=== PATIENT | female | born 1930 | race Caucasian/White ===

== ENCOUNTER 2018-12-01 18:32 | Inpatient (IN) | payer MEDICARE ==
[2018-12-01] MEDS ORDERED: Piperacillin/Tazobactam 4.5 GM VIAL ONE (19:04)
[2018-12-01 19:16] LABS: Bilirubin Negative (Negative); Blood, Urine Small (Negative); Clarity CLOUDY (Clear); Glucose, Urine (Dipstick) Negative (Negative); Leukocyte Small (Negative); Nitrite Positive (Negative); Protein, Urine (Dipstick) 300 mg/dL (Neg-Trace); Specific Gravity, Urine 1.015 (1.002-1.036); Urobilinogen 0.2 mg/dL (0.2-1.0)
[2018-12-01 19:19] LABS: Bacteria/HPF None Seen HPF (None Seen); Hyaline Casts/LPF 0-3 HYALINE CAST LPF (0-3 Hyaline); Pathc Cast-AUWi Flag 0.14 (0-2.49); RBC/HPF None Seen HPF (0-3); Squamous Epithelial None Seen HPF (0-3)
[2018-12-01 19:45] LABS: #Lymphocytes 0.6 thou/uL (1.20-3.40); #Monocytes 0.4 thou/uL (0.11-0.59); #Neutrophils 2.5 thou/uL (1.40-6.50); %Basophils 0.8 % (0.0-1.0); %Eosinophils 0.6 % (0.0-10.0); %Lymphocytes 17.8 % (21.0-51.0); %Monocytes 10.9 % (0.0-10.0); Hemoglobin 7.3 g/dL (12.0-16.0); Mean Corpuscular HGB CONC 33.6 g/dL (32.0-36.0); Mean Corpuscular Hemoglobin 32.8 pg (27.0-31.0); Mean Corpuscular Volume 97.5 fL (78.0-98.0); Mean Platelet Volume 7.7 fL (7.4-10.4); Platelet Count 152 thou/uL (130-400); RBC Distribution Width 12.9 % (11.5-14.5); Red Blood Cell (RBC) Count 2.22 mill/uL (4.20-5.40); White Blood Cell (WBC) Count 3.6 thou/uL (4.8-10.8)
[2018-12-01 20:05] LABS: ALT (SGPT) 13 U/L (8-55); AST (SGOT) 23 U/L (5-34); Albumin 2.9 g/dL (3.4-4.8); Alkaline Phosphatase 64 U/L (40-150); Anion Gap 13 mmol/L (10-20); BUN (Urea Nitrogen) 32 mg/dL (9.8-20.1); Bilirubin, Total 0.2 mg/dL (0.2-1.2); CK (CPK) 247 U/L (29-168); Calc. Creatinine Clearance 0 mL/min (70-130); Calcium 7.9 mg/dL (7.8-10.44); Carbon Dioxide 15 mmol/L (23-31); Chloride 114 mmol/L (98-107); Estimated GFR-MDRD 38; Globulin 2.3 g/dL (2.4-3.5); Glucose 132 mg/dL (83-110); Protein, Total 5.2 g/dL (6.0-8.3); Sodium 138 mmol/L (136-145)
[2018-12-01] MEDS ORDERED: Oseltamivir 75 MG CAP PO SCH (20:45)
--- NOTE | 2018-12-01 21:12 | CT ---
BRAIN CT WITHOUT IV CONTRAST: 12/01/18 HISTORY: 88-year-old female with history of altered mental status. Atrophy and chronic white matter ischemic changes with some generalized ventriculomegaly. Sinus mucos al changes particularly the left maxillary and sphenoid sinuses with probable small amount of fluid in the left maxillary sinus. The mastoids appear clear. No focal mass or midline shift. 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 IMPRESSION: Atrophy and chronic white matter ischemic changes. No mass or bleed. Sinus mucosal disease. POS: [facility]
--- NOTE | 2018-12-01 21:23 | RAD ---
CHEST ONE VIEW: 12/01/18 HISTORY: 88-year-old female with history of cough and altered mental status. There is considerable rotation to the right. Left PICC line in place. Surgical clips overlie the left chest and chest wall region. Minimal blunting of the right costophrenic angle with some increased ma rkings in the right perihilar and infrahilar region, nonspecific. Conceivably this could represent so me mild atypical pneumonitis but no evidence for significant confluent lobar pneumonia. IMPRESSION: Minimal increase linear and interstitial markings in the right chest and perihilar region possibly at ypical pneumonia or pneumonitis. Marked rotation to the right. No significant cardiomegaly. There is overall slight prominence of the right hilar region. This may just be related to rotation or could we ll be related to some associated adjacent pneumonia or pneumonitis. Short term followup is recommende d. POS: [facility]
[2018-12-01 22:28] VITALS: BMI 23.4
[2018-12-01] MEDS ORDERED: Sodium Chloride 0.9% 1,000 ML IV SCH (22:30)
[2018-12-01] MEDS ORDERED: Ondansetron PF 4 MG/2 ML Vial IVP PRN (22:43)
[2018-12-01] MEDS ORDERED: Guaifenesin DM 100-10/5 ML UDCUP PO PRN (22:43)
[2018-12-01] MEDS ORDERED: Loperamide HCl 2 MG CAP PO PRN (22:43)
[2018-12-01] MEDS ORDERED: Calcium Carbonate 500 MG ChewTAB PO PRN (22:43)
[2018-12-01] MEDS ORDERED: Senokot S 8.6-50 MG TAB PO PRN (22:43)
[2018-12-01] MEDS ORDERED: Bisacodyl 10 MG SUPP PR PRN (22:43)
[2018-12-01] MEDS ORDERED: Ondansetron ODT 4 MG TAB PO PRN (22:43)
[2018-12-01] MEDS: Sodium Chloride 0.45% 1,000 ML IV SCH (22:50)
--- NOTE | 2018-12-01 23:10 | HP ---
PRIMARY CARE PHYSICIAN: Derik Weeks MD REASON FOR ADMISSION: Sepsis, influenza A, UTI, acute kidney failure, and encephalopathy. HISTORY OF PRESENT ILLNESS: This is an 88-year-old female who lives at senior living. She has DNR status at senior living. The patient is not able to provide any history, so most of the history obtained from the emergency room record. The patient was altered more than her baseline at senior living. She has underlying Alzheimer's dementia, but she appeared more altered at dinner time. She was hypotensive as well as extremely weak. She also had diarrhea. She was also having cough productive of whitish sputum. She was having a little bit low-grade fever at senior living and with all these symptoms, she was presented to the emergency room. When paramedics took her from senior living, at that time, her blood pressure was 70/50 and after giving her IV fluid, her blood pressure improved to 110 systolic. When she came to emergency room, the patient was having low-grade fever. She was having relatively low blood pressure. The patient was found with influenza A. her urinalysis was consistent with UTI. She was also found with acute kidney injury. The patient clinically appeared dehydrated. Her urinalysis is suggestive of UTI as well. The patient is being admitted to [facility] for close monitoring. The patient has out of hospital DNR paperwork at senior living. REVIEW OF SYSTEMS: All review of system tried to be reviewed with the patient, but unable to review at this point because of encephalopathy. PAST MEDICAL HISTORY: Tinea infection, keratosis, peripheral vascular disease, osteoarthritis, hypertension, history of left breast cancer, coronary artery disease, hiatal hernia, asthma, and dyslipidemia. PAST SURGICAL HISTORY: Left mastectomy. PAST PSYCHIATRIC HISTORY: Anxiety, depression and dementia. SOCIAL HISTORY: The patient is from senior living. No history of tobacco, alcohol, or illicit drug abuse. FAMILY HISTORY: The patient is not able to provide any family history and we do not have any information about family history. Unable to review at this point. ALLERGIES: NO KNOWN DRUG ALLERGIES. REVIEW OF SYSTEMS: All review of system tried to be reviewed with the patient, but unable to review because of altered mental status. CURRENT HOME MEDICATIONS: 1. Amlodipine 5 mg twice daily. 2. Buspirone 15 mg daily. 3. Colace 100 mg daily. 4. Aricept 10 mg daily. 5. Lexapro 10 mg daily. 6. Melatonin 3 mg p.o. nightly. 7. Namenda 10 mg twice daily. 8. Seroquel 50 mg twice daily. EMERGENCY ROOM COURSE: The patient has received IV fluids, DuoNeb, Zosyn, and Tamiflu. PHYSICAL EXAMINATION: VITAL SIGNS: On arrival, blood pressure 91/49, temperature 100.3, pulse 81, respiratory rate 20, saturation 95% on room air and weight 59 kg. GENERAL: The patient currently appears chronically ill, awake, but confused. No obvious acute distress. HEENT: Head; normocephalic, atraumatic. Eyes; pupils round, reactive to light. Extraocular muscle intact. ENT; oropharynx within normal limits. Moist mucous membranes. No oral lesion. No pharyngeal erythema. No exudate. NECK: Supple. No JVD. No thyromegaly. No carotid bruit. LUNGS: Coarse breath sounds noted, but no obvious rhonchi or rales elicited. CARDIAC: S1, S2 appears regular without any significant murmur. ABDOMEN: Soft and benign without any tenderness. EXTREMITIES: No edema. NEUROLOGIC: Nonfocal examination. She moves all four limbs, but the patient is confused and unable to provide any detailed neurological examination. SIGNIFICANT LABORATORY DATA: CT brain showing a brain atrophy, chronic white matter ischemic changes. Chest x-ray showing interstitial infiltration. CBC; WBC 3.6, hemoglobin 7.3, platelets 152. BMP; sodium 138, potassium 4.0, chloride 114, carbon dioxide 15, BUN 13, creatinine 32, creatinine 1.33, glucose 132, calcium 7.9. Lactic acid 1.6. LFTs; AST 23, ALT 13, alkaline phosphatase 64, and albumin 2.9. CK 247. Urinalysis suggestive of UTI. Stool for C diff negative. Stool for guaiac positive, Campylobacter and shiga toxin negative. Influenza A positive. ASSESSMENT AND PLAN: 1. Acute encephalopathy due to sepsis. The patient does have underlying Alzheimer's dementia, but she is more altered than baseline, likely due to underlying influenza A, urinary tract infection and dehydration. CT brain is showing brain atrophy without any acute process. 2. Acute kidney failure. The patient clinically appears dehydrated. She will be given IV fluid with half-normal saline NS at 75 mL/hour, and we will repeat BMP tomorrow. 3. Hyperchloremic acidosis with normal anion gap. We will repeat BMP tomorrow. This could be related with her diarrhea, but her stool for Clostridium difficile is negative. She has underlying viral illness that contributing to her diarrhea as well. 4. Urinary tract infection. The patient will be given Rocephin and Levaquin and we will follow up on urine culture results. 5. Pneumonia. The patient will be given Rocephin and levofloxacin and DuoNeb p.r.n. basis. 6. Sepsis with acute organ dysfunction. The patient has sepsis picture with leukopenia. Source of infection is urinary tract infection and pneumonia as well as influenza. The patient is already on Tamiflu, Rocephin, Levaquin, and we will follow up on culture results. 7. Influenza A. Continue Tamiflu 75 mg p.o. b.i.d. 8. Anemia. Continue folic acid, vitamin B12, and ferrous sulfate. 9. Hypotension. Continue IV fluid with NS at 75 mL/h and increase the fluid if needed. If the patient's blood pressure continue to remain low, then we will check random cortisol. 10. Alzheimer's dementia. The patient will continue Aricept 10 mg p.o. daily and Namenda 10 mg twice daily. 11. Anxiety and depression. We will continue buspirone 15 mg daily, Lexapro 10 mg daily, and Seroquel 50 mg p.o. b.i.d. 12. Hypertension, but currently low blood pressure and so I will hold on antihypertensive medication. 13. Deep venous thrombosis prophylaxis. Lovenox 30 mg subcutaneous daily. 14. Gastrointestinal prophylaxis. Pepcid 20 mg p.o. b.i.d. CODE STATUS: The patient is DNR. The patient does not have any surrogate decision maker. DISPOSITION PLAN: Based on clinical course, we are expecting the patient's stay in hospital more than two midnights. Plan of care discussed with the patient in detail. Job ID: [id number]
[2018-12-01] MEDS ORDERED: Vancomycin HCl 1 GM in Premix Bag 1 BAG IVPB SCH (23:59)
[2018-12-01] MEDS ORDERED: cefTRIAXone\\ROCEPHIN 1 GM in Sodium Chloride 0.9% 100 ML IVPB SCH (23:59)
[2018-12-02 04:40] LABS: ALT (SGPT) 13 U/L (8-55); AST (SGOT) 28 U/L (5-34); Albumin 2.8 g/dL (3.4-4.8); Alkaline Phosphatase 59 U/L (40-150); Anion Gap 11 mmol/L (10-20); BUN (Urea Nitrogen) 27 mg/dL (9.8-20.1); Bilirubin, Total 0.2 mg/dL (0.2-1.2); Calc. Creatinine Clearance 31 mL/min (70-130); Calcium 7.8 mg/dL (7.8-10.44); Carbon Dioxide 15 mmol/L (23-31); Chloride 117 mmol/L (98-107); Estimated GFR-MDRD 47; Globulin 2.4 g/dL (2.4-3.5); Glucose 82 mg/dL (83-110); Potassium 4.4 mmol/L (3.5-5.1); Protein, Total 5.2 g/dL (6.0-8.3); Sodium 139 mmol/L (136-145)
[2018-12-02 05:04] LABS: Hemoglobin 7.8 g/dL (12.0-16.0); Hypochromia SLIGHT = 6-15 cells (100X) (0-5/hpf); Lymphocytes 28 % (21-51); MDiff Complete? YES; Mean Corpuscular HGB CONC 32.8 g/dL (32.0-36.0); Mean Corpuscular Hemoglobin 31.6 pg (27.0-31.0); Mean Corpuscular Volume 96.3 fL (78.0-98.0); Monocytes 12 % (0-10); Neutrophil 60 % (42-75); PLT Morphology Comment Appears Decreased; Platelet Count 113 thou/uL (130-400); RBC Distribution Width 12.8 % (11.5-14.5); Red Blood Cell (RBC) Count 2.47 mill/uL (4.20-5.40); White Blood Cell (WBC) Count 3.5 thou/uL (4.8-10.8)
[2018-12-02] MEDS ORDERED: Oseltamivir 75 MG CAP PO SCH (09:00)
[2018-12-02] MEDS ORDERED: Prevnar 13-Val Conj/PF 0.5 ML SYRINGE IM ONE (09:00)
[2018-12-02] MEDS: Multivitamin W/ Minerals 1 TAB PO SCH (09:15)
[2018-12-02] MEDS: busPIRone HCl 10 MG TAB PO SCH ×2 (09:15→20:44)
[2018-12-02] MEDS: Enoxaparin Sodium 30 MG/0.3 ML SYRINGE SC SCH (09:15)
[2018-12-02] MEDS: Calcium Carbonate + Vit D 1 TAB PO SCH ×2 (09:16→20:44)
[2018-12-02] MEDS: Ferrous Sulfate 325 MG TAB PO SCH (09:16)
[2018-12-02] MEDS: Cyanocobalamin (Vitamin B-12) 1,000 MCG TAB PO SCH (09:16)
[2018-12-02] MEDS: Donepezil HCl 10 MG TAB PO SCH (09:16)
[2018-12-02] MEDS: Amlodipine 5 MG TAB PO SCH ×2 (09:16→20:45)
[2018-12-02] MEDS: Saccharomyces boulardii 250 MG CAP PO SCH (09:16)
[2018-12-02] MEDS: Escitalopram Oxalate 10 mg Tablet PO SCH (09:16)
[2018-12-02] MEDS: Folic Acid 1 MG TAB PO SCH (09:16)
[2018-12-02] MEDS: guaiFENesin ER 600 MG TAB PO SCH ×2 (09:16→20:45)
[2018-12-02] MEDS: Docusate 100 MG CAP PO SCH (09:16)
[2018-12-02] MEDS: Famotidine 20 MG TAB PO SCH (09:16)
--- NOTE | 2018-12-02 11:50 | CON ---
DATE OF CONSULTATION: 12/02/2018 SERVICE: Pulmonary Medicine. REASON FOR CONSULT: IMCU patient. HISTORY OF PRESENT ILLNESS: The patient is an 88-year-old white female with past medical history significant for cognitive impairment. She lives in a nursing facility. She was in her usual state of health when she had increasing weakness and lethargy. She had some diarrhea. She had significant cough. She had a fever. She was brought to the emergency department. Her blood pressures were marginal. She was identified as having both urinary tract infection as well as influenza A. There was reports that she had some bloody bowel movements as well. She cannot provide any additional elements of the presenting history. She currently denies having any chest pain, fevers, chills, nausea, or vomiting. She is coughing. She denies having any sputum production. She is not having any abdominal pain, dysuria, frequency, or diarrhea that she can remember. PAST MEDICAL HISTORY: 1. Dementia, advanced. 2. Breast cancer. 3. Coronary artery disease. 4. Peripheral vascular disease. 5. Hypertension. 6. Dyslipidemia. 7. Asthma. 8. Osteoarthritis. 9. Hiatal hernia. PAST SURGICAL HISTORY: Left mastectomy. SOCIAL HISTORY: Negative for alcohol, tobacco, or illicit drug use currently. She lives in a nursing facility. FAMILY HISTORY: Noncontributory. ALLERGIES: NO KNOWN DRUG ALLERGIES. MEDICATIONS: List of her inpatient medications was reviewed. Multiple updates were made at this time. REVIEW OF SYSTEMS: General; head, ears, eyes, nose, and throat; cardiovascular; respiratory; GI; ; musculoskeletal; neurologic; and skin are negative, except for as mentioned in the HPI. PHYSICAL EXAMINATION: VITAL SIGNS: Afebrile, pulse 65, blood pressure 156/76, respirations 18, and saturation 98% on room air. GENERAL: The patient is awake and alert, in no apparent distress. LUNGS: Decent air entry. Extensive rhonchi are present. There is no prolonged expiratory phase or wheezing appreciated. HEART: Normal rate, regular. ABDOMEN: Soft, nontender, and nondistended. Bowel sounds are positive. MUSCULOSKELETAL: No cyanosis or clubbing. There is no pitting in bilateral lower extremities. NEUROLOGIC: Grossly nonfocal. LABORATORY DATA: WBC 3.5, hemoglobin 7.8, and platelets 113,000. Monocytes are 12% and improving. Lymphocytes are likewise rebounding. Chloride 117. Basic metabolic profile is otherwise unremarkable. Bicarb 15. Liver function studies are unremarkable. Lactate is negative. Nitrites are positive with greater than 50 white blood cells. Leukocyte esterase is also present. Blood cultures x2 are negative. Influenza A is positive. C difficile antigen and toxin are unremarkable. Occult blood is positive. IMAGING DATA: 1. Chest x-ray demonstrates no acute subtle interstitial fullness in the right chest. There is significant rotation there. There is a left PICC line, which appears to terminate in a good position. I do not see any obvious effusion. 2. CT of the brain demonstrates no acute intracranial abnormality. ASSESSMENT: 1. Acute hypoxic respiratory failure, resolved. 2. Acute bronchitis secondary to influenza A. 3. Urinary tract infection. 4. Severe sepsis. 5. Metabolic encephalopathy, resolved. 6. Positive fecal occult blood test. 7. Anemia. DISCUSSION AND PLAN: The patient is stable for transition out of the IMCU to the medical unit. Pulmonary will continue to follow for an additional 24 hours. We will continue steroids, nebulized medications, and antibiotics. Cough suppressants will be interrupted. Pulmonary/Critical Care will continue to follow along for now. 70 minutes have been devoted to this patient in various activities. I personally reviewed all imaging studies and laboratory data noted within this document. For fifty percent of this time, I was interacting with the patient at the bedside or coordinating care with the care team. For the remainder of the time I was immediately available to the patient in the hospital unit. Job ID: [id number] MTDD
[2018-12-02] MEDS ORDERED: hydrALAZINE 20 MG/ML VIAL SLOW IVP PRN (14:04)
[2018-12-02] MEDS: hydrALAZINE 25 MG TAB PO SCH ×2 (15:05→20:44)
[2018-12-02] MEDS: Acetaminophen 325 MG TAB PO PRN (15:06)
--- NOTE | 2018-12-02 19:54 | PDOC.PN ---
- Subjective Encounter Start Date: 12/02/18 Encounter Start Time: 10:20 Says she does not feel good. No much more specific. Questions what is wrong her (does not recall). - Objective Resuscitation Status - Order Detail: 12/01/18 21:18 Resuscitation Status Routine Resuscitation Status: DNAR: NO Resuscitation Discussed with: pt has outof hospital DNR and wanted to continue Vital Signs & Weight: Vital Signs (12 hours) Temp Pulse Pulse Pulse Resp BP BP 12/02/18 15:09 98.3 F 89 18 185/67 H 12/02/18 15:05 85 12/02/18 14:33 101 H 90 213/96 H 12/02/18 11:06 98.5 F 85 18 177/102 H 12/02/18 09:16 65 12/02/18 08:02 96.7 F L 65 18 156/76 H Pulse Ox Pulse Ox Pulse Ox 12/02/18 15:09 100 12/02/18 15:05 12/02/18 14:33 97 98 12/02/18 11:06 94 L 12/02/18 09:16 12/02/18 08:02 98 Weight Admit Weight 120 lb 3.2 oz Weight 120 lb 3.2 oz I&O: 12/01/18 12/02/18 12/03/18 06:59 06:59 06:59 Intake Total 525 Balance 525 Result Diagrams: 12/02/18 04:16 12/02/18 04:16 Phys Exam - Physical Examination No distress, but appears to have chills. Awake and alert. Confused. Respiratory: no wheezing, no rales, no rhonchi Cardiovascular: RRR, no significant murmur, no rub Gastrointestinal: soft, non-tender, no distention, positive bowel sounds Musculoskeletal: no edema Skin: normal turgor Dx/Plan (1) Acute metabolic encephalopathy Code(s): G93.41 - METABOLIC ENCEPHALOPATHY Status: Acute (2) Sepsis Code(s): A41.9 - SEPSIS, UNSPECIFIED ORGANISM Status: Acute (3) UTI (urinary tract infection) Status: Acute (4) Influenza A Code(s): J10.1 - FLU DUE TO OTH IDENT INFLUENZA VIRUS W OTH RESP MANIFEST Status: Acute (5) Acute kidney failure Status: Acute (6) Anemia Code(s): D64.9 - ANEMIA, UNSPECIFIED Status: Acute (7) Hypotension Status: Acute (8) Alzheimer's dementia Code(s): G30.9 - ALZHEIMER'S DISEASE, UNSPECIFIED; F02.80 - DEMENTIA IN OTH DISEASES CLASSD ELSWHR W/O BEHAVRL DISTURB Status: Acute (9) Anxiety and depression Code(s): F41.9 - ANXIETY DISORDER, UNSPECIFIED; F32.9 - MAJOR DEPRESSIVE DISORDER, SINGLE EPISODE, UNSPECIFIED Status: Acute (10) Hypertension Code(s): I10 - ESSENTIAL (PRIMARY) HYPERTENSION Status: Acute - Plan * Pulmonology consulted. * Continue fluid resuscitation. * IV Levaquin * Tamiflu. * Monitor renal function. * Renal dose meds.
[2018-12-02] MEDS: Melatonin 3 MG TAB PO SCH (20:44)
[2018-12-02] MEDS: Oseltamivir 6 MG/ML ORAL SUSP PO SCH (20:45)
[2018-12-02] MEDS: Sodium Chloride 0.45% 1,000 ML IV SCH ×2 (22:11→23:43)
[2018-12-02] MEDS ORDERED: Diphenoxylate HCl/Atropine Tablet PO SCH (22:45)
[2018-12-03 06:57] LABS: Hemoglobin 8.5 g/dL (12.0-16.0)
[2018-12-03] MEDS: Calcium Carbonate + Vit D 1 TAB PO SCH ×2 (07:18→20:20)
[2018-12-03] MEDS: Donepezil HCl 10 MG TAB PO SCH (07:18)
[2018-12-03] MEDS: Oseltamivir 6 MG/ML ORAL SUSP PO SCH ×2 (07:18→21:01)
[2018-12-03] MEDS: guaiFENesin ER 600 MG TAB PO SCH ×2 (07:19→20:20)
[2018-12-03] MEDS: Folic Acid 1 MG TAB PO SCH (07:19)
[2018-12-03] MEDS: Escitalopram Oxalate 10 mg Tablet PO SCH (07:19)
[2018-12-03] MEDS: Docusate 100 MG CAP PO SCH (07:19)
[2018-12-03] MEDS: Saccharomyces boulardii 250 MG CAP PO SCH (07:19)
[2018-12-03] MEDS: busPIRone HCl 10 MG TAB PO SCH ×2 (07:19→20:19)
[2018-12-03] MEDS: Multivitamin W/ Minerals 1 TAB PO SCH (07:19)
[2018-12-03] MEDS: Famotidine 20 MG TAB PO SCH (07:20)
[2018-12-03] MEDS: Enoxaparin Sodium 30 MG/0.3 ML SYRINGE SC SCH (07:20)
[2018-12-03] MEDS: Cyanocobalamin (Vitamin B-12) 1,000 MCG TAB PO SCH (07:20)
[2018-12-03] MEDS: Ferrous Sulfate 325 MG TAB PO SCH (07:20)
[2018-12-03 07:22] LABS: Anion Gap 13 mmol/L (10-20); BUN (Urea Nitrogen) 17 mg/dL (9.8-20.1); Calc. Creatinine Clearance 33 mL/min (70-130); Calcium 8.4 mg/dL (7.8-10.44); Carbon Dioxide 16 mmol/L (23-31); Chloride 110 mmol/L (98-107); Estimated GFR-MDRD 52; Glucose 84 mg/dL (83-110); Magnesium 1.5 mg/dL (1.6-2.6); Phosphorus 2.7 mg/dL (2.3-4.7); Potassium 3.7 mmol/L (3.5-5.1); Sodium 135 mmol/L (136-145)
[2018-12-03] MEDS: Amlodipine 5 MG TAB PO SCH ×2 (07:24→20:20)
[2018-12-03] MEDS: hydrALAZINE 25 MG TAB PO SCH ×3 (07:24→20:20)
[2018-12-03] MEDS: Sodium Chloride 0.45% 1,000 ML IV SCH ×2 (08:11→11:36)
[2018-12-03] MEDS: Acetaminophen 325 MG TAB PO PRN (08:11)
[2018-12-03] MEDS ORDERED: Magnesium Sulfate 2 GM in Sodium Chloride 0.9% 100 ML IVPB SCH (09:45)
[2018-12-03] MEDS ORDERED: Magnesium 2 GM/50 ML 2 GM in Premix Bag 1 BAG IVPB SCH (09:45)
--- NOTE | 2018-12-03 09:46 | PRG ---
DATE OF SERVICE: SERVICE: Pulmonary Medicine. INTERVAL HISTORY: The patient is doing fine from respiratory standpoint. She is breathing comfortably. She has been weaned down to room air. She does not have any complaints. No overnight events were recorded. PHYSICAL EXAMINATION: VITAL SIGNS: Temperature 100.8, pulse 86, blood pressure 102/67, respirations 18, and saturation 94% on room air. GENERAL: The patient is awake and alert, in no apparent distress. LUNGS: Decent air entry. Rhonchi are present. No dependent crackles are noted. HEART: Normal rate, regular. ABDOMEN: Soft, nontender, and nondistended. Bowel sounds are positive. MUSCULOSKELETAL: No cyanosis or clubbing. No pitting in the bilateral lower extremities. NEUROLOGIC: Grossly nonfocal. LABORATORY DATA: Hemoglobin 8.5. Sodium 135, chloride 110, bicarb 16 and slowly improving, anion gap 13. Creatinine 1.01 and stable, magnesium 1.5. Urine culture is growing Staph species. Blood cultures x2, and C. diff antigen and toxin are unremarkable. ASSESSMENT: 1. Acute hypoxic respiratory failure, resolved. 2. Acute bronchitis secondary to influenza A. 3. Urinary tract infection. 4. Severe sepsis. 5. Metabolic encephalopathy, resolved. 6. Anemia. 7. Dementia, fairly advanced. DISCUSSION AND PLAN: We will replace the magnesium and the potassium. Otherwise, supportive measures including antibiotics, steroids, nebulized medications will be continued. Pulmonary Critical Care will continue to follow along while the patient remains inhouse. Job ID: [id number]
--- NOTE | 2018-12-03 11:03 | PDOC.PN ---
- Subjective Encounter Start Date: 12/03/18 Encounter Start Time: 08:50 Denies specific concerns. Says, "I just hate myself." Does not respond to me when I tried to clarify. - Objective Resuscitation Status - Order Detail: 12/01/18 21:18 Resuscitation Status Routine Resuscitation Status: DNAR: NO Resuscitation Discussed with: pt has outof hospital DNR and wanted to continue Vital Signs & Weight: Vital Signs (12 hours) Temp Pulse Resp BP BP Pulse Ox 12/03/18 07:54 100.8 F H 86 18 102/67 94 L 12/03/18 07:24 87 130/74 12/03/18 05:05 98.7 F 87 16 117/70 93 L 12/03/18 00:00 98 F 83 16 137/81 93 L 12/02/18 23:17 98.8 F 86 20 122/62 96 Weight Admit Weight 120 lb 3.2 oz Weight 120 lb 3.2 oz I&O: 12/02/18 12/03/18 12/04/18 06:59 06:59 06:59 Intake Total 525 500 Balance 525 500 Result Diagrams: 12/03/18 06:40 12/03/18 06:40 Phys Exam - Physical Examination Constitutional: NAD Respiratory: no wheezing, no rhonchi Minimal scattered rales. Cardiovascular: RRR, no significant murmur Gastrointestinal: soft, non-tender, no distention, positive bowel sounds Musculoskeletal: no edema Deviation from normal: baseline confused. Dx/Plan (1) Acute respiratory failure with hypoxia Code(s): J96.01 - ACUTE RESPIRATORY FAILURE WITH HYPOXIA Status: Resolved (2) Acute metabolic encephalopathy Code(s): G93.41 - METABOLIC ENCEPHALOPATHY Status: Acute Comment: Secondary to sepsis. Baseline dementia. (3) Sepsis Code(s): A41.9 - SEPSIS, UNSPECIFIED ORGANISM Status: Acute Comment: Secondary to UTI and influenza. (4) UTI (urinary tract infection) Status: Acute Comment: Growing Staph in urine. On Levaquin. (5) Influenza A Code(s): J10.1 - FLU DUE TO OTH IDENT INFLUENZA VIRUS W OTH RESP MANIFEST Status: Acute Comment: Tamiflu. (6) Acute kidney failure Status: Resolved (7) Anemia Code(s): D64.9 - ANEMIA, UNSPECIFIED Status: Acute Comment: Heme positive. May need workup when more stable, but hgb actually going up. (8) Hypotension Status: Resolved (9) Alzheimer's dementia Code(s): G30.9 - ALZHEIMER'S DISEASE, UNSPECIFIED; F02.80 - DEMENTIA IN OTH DISEASES CLASSD ELSWHR W/O BEHAVRL DISTURB Status: Chronic (10) Anxiety and depression Code(s): F41.9 - ANXIETY DISORDER, UNSPECIFIED; F32.9 - MAJOR DEPRESSIVE DISORDER, SINGLE EPISODE, UNSPECIFIED Status: Chronic (11) Hypertension Code(s): I10 - ESSENTIAL (PRIMARY) HYPERTENSION Status: Chronic (12) Hypomagnesemia Code(s): E83.42 - HYPOMAGNESEMIA Status: Acute Comment: Repletion ordered - Plan * Continue antibiotics and antivirals. * Follow up on cultures. * Continue home meds.
[2018-12-03] MEDS: Melatonin 3 MG TAB PO SCH (20:21)
[2018-12-04] MEDS: Sodium Chloride 0.45% 1,000 ML IV SCH (05:08)
[2018-12-04 06:54] LABS: Anion Gap 13 mmol/L (10-20); BUN (Urea Nitrogen) 18 mg/dL (9.8-20.1); Calc. Creatinine Clearance 29 mL/min (70-130); Calcium 8.5 mg/dL (7.8-10.44); Carbon Dioxide 17 mmol/L (23-31); Chloride 111 mmol/L (98-107); Estimated GFR-MDRD 45; Glucose 91 mg/dL (83-110); Potassium 3.7 mmol/L (3.5-5.1); Sodium 137 mmol/L (136-145)
[2018-12-04] MEDS: Oseltamivir 6 MG/ML ORAL SUSP PO SCH ×2 (08:11→21:22)
[2018-12-04] MEDS: Enoxaparin Sodium 30 MG/0.3 ML SYRINGE SC SCH (08:11)
[2018-12-04] MEDS: busPIRone HCl 10 MG TAB PO SCH ×2 (08:12→21:21)
[2018-12-04] MEDS: Ferrous Sulfate 325 MG TAB PO SCH (08:12)
[2018-12-04] MEDS: Amlodipine 5 MG TAB PO SCH ×2 (08:12→21:21)
[2018-12-04] MEDS: Donepezil HCl 10 MG TAB PO SCH (08:12)
[2018-12-04] MEDS: Calcium Carbonate + Vit D 1 TAB PO SCH ×2 (08:13→21:22)
[2018-12-04] MEDS: hydrALAZINE 25 MG TAB PO SCH ×3 (08:13→21:21)
[2018-12-04] MEDS: Escitalopram Oxalate 10 mg Tablet PO SCH (08:13)
[2018-12-04] MEDS: Docusate 100 MG CAP PO SCH ×2 (08:13→08:33)
[2018-12-04] MEDS: Cyanocobalamin (Vitamin B-12) 1,000 MCG TAB PO SCH (08:13)
[2018-12-04] MEDS: Saccharomyces boulardii 250 MG CAP PO SCH ×2 (08:13→21:22)
[2018-12-04] MEDS: Multivitamin W/ Minerals 1 TAB PO SCH (08:13)
[2018-12-04] MEDS: Famotidine 20 MG TAB PO SCH (08:13)
[2018-12-04] MEDS: guaiFENesin ER 600 MG TAB PO SCH ×2 (08:13→21:21)
[2018-12-04] MEDS: Folic Acid 1 MG TAB PO SCH (08:13)
--- NOTE | 2018-12-04 12:21 | PRG ---
DATE OF SERVICE: 12/04/2018 SUBJECTIVE: The patient is very confused, but does not appear to be in any distress. OBJECTIVE: VITAL SIGNS: On exam, temperature is 97.7, pulse 81, blood pressure 151/76, and O2 sat 94%. HEENT: Unremarkable. NECK: No JVD. CHEST: Fairly clear. CARDIAC: S1 and S2, regular. ABDOMEN: Soft. EXTREMITIES: No edema. DIAGNOSTIC DATA: Cultures demonstrate MRSA coming from the urine, which was resistant to the Levaquin that she is on. ASSESSMENT: 1. Acute hypoxic respiratory failure, which is improved. 2. Tracheobronchitis secondary to influenza A. 3. Urinary tract infection. 4. Sepsis. 5. Encephalopathy. 6. Anemia. PLAN: 1. Change the Levaquin to oral Bactrim. 2. Continue all the medical treatment. 3. Dr. Reyes will recheck the patient on Thursday. Job ID: [id number]
--- NOTE | 2018-12-04 14:17 | PDOC.PN ---
- Subjective Encounter Start Date: 12/04/18 Encounter Start Time: 08:50 Reports a cough. Thinks she needs to see a doctor. Otherwise she says she is doing fine. - Objective Resuscitation Status - Order Detail: 12/01/18 21:18 Resuscitation Status Routine Resuscitation Status: DNAR: NO Resuscitation Discussed with: pt has outof hospital DNR and wanted to continue Vital Signs & Weight: Vital Signs (12 hours) Temp Pulse Resp BP BP Pulse Ox 12/04/18 08:13 81 151/76 H 12/04/18 08:12 81 151/76 H 12/04/18 08:00 94 L 12/04/18 07:51 97.7 F 81 20 151/76 H 94 L Weight Admit Weight 120 lb 3.2 oz Weight 120 lb 3.2 oz I&O: 12/03/18 12/04/18 12/05/18 06:59 06:59 06:59 Intake Total 500 2200 100 Balance 500 2200 100 Result Diagrams: 12/03/18 06:40 12/04/18 06:16 Phys Exam - Physical Examination Constitutional: NAD Respiratory: no wheezing, no rales, no rhonchi, clear to auscultation bilateral Some upper tracheal secretions. Has good deliberate cough. Cardiovascular: RRR, no significant murmur Gastrointestinal: soft, non-tender, no distention, positive bowel sounds Musculoskeletal: no edema Deviation from normal: Confused at baseline. Dx/Plan (1) Acute respiratory failure with hypoxia Code(s): J96.01 - ACUTE RESPIRATORY FAILURE WITH HYPOXIA Status: Resolved (2) Acute metabolic encephalopathy Code(s): G93.41 - METABOLIC ENCEPHALOPATHY Status: Acute Comment: Secondary to sepsis. Baseline dementia. (3) Sepsis Code(s): A41.9 - SEPSIS, UNSPECIFIED ORGANISM Status: Acute Comment: Secondary to UTI and influenza. (4) UTI (urinary tract infection) Status: Acute Comment: Growing Staph in urine. DC Levaquin and start Zyvox. May transition to po after 48 hours of appropriate IV therapy. MRSA resistant to the Levaquin. (5) Influenza A Code(s): J10.1 - FLU DUE TO OTH IDENT INFLUENZA VIRUS W OTH RESP MANIFEST Status: Acute Comment: Tamiflu. (6) Acute kidney failure Status: Resolved (7) Anemia Code(s): D64.9 - ANEMIA, UNSPECIFIED Status: Acute Comment: Heme positive. May need workup when more stable, but hgb actually going up. (8) Hypotension Status: Resolved (9) Alzheimer's dementia Code(s): G30.9 - ALZHEIMER'S DISEASE, UNSPECIFIED; F02.80 - DEMENTIA IN OTH DISEASES CLASSD ELSWHR W/O BEHAVRL DISTURB Status: Chronic (10) Anxiety and depression Code(s): F41.9 - ANXIETY DISORDER, UNSPECIFIED; F32.9 - MAJOR DEPRESSIVE DISORDER, SINGLE EPISODE, UNSPECIFIED Status: Chronic (11) Hypertension Code(s): I10 - ESSENTIAL (PRIMARY) HYPERTENSION Status: Chronic (12) Hypomagnesemia Code(s): E83.42 - HYPOMAGNESEMIA Status: Acute Comment: Repletion ordered - Plan * As above. * Had IV Levaquin, but MRSA is resistant. Changing to IV Zyvox. May be able to change to po in a day or two if improving. * Continue full course of Tamiflu. * Add Florastor.
--- NOTE | 2018-12-04 14:30 | PDOC.EVN ---
Event Note - Event Note Event Note: This patient has had two different electronic records in our system. Her history is not fully available in this record. Reviewing the other record, the patient has had numerous prior UTI's. In the past, they have gram negatives. Mostly E. coli. She was seen by ID at the last visit. I will involve him again given the nature of the recurrent infections.
[2018-12-04] MEDS ORDERED: Linezolid 600 MG in Premix Bag 1 BAG IVPB SCH (21:00)
[2018-12-04] MEDS: Melatonin 3 MG TAB PO SCH (21:20)
[2018-12-04] MEDS: Sulfameth/Trimethoprim DS 800-160mg TAB PO SCH (21:21)
--- NOTE | 2018-12-04 23:51 | CON ---
DATE OF CONSULTATION: 12/04/2018 REASON: Abnormal urinalysis and urine culture, newly diagnosed influenza A, and respiratory tract infection. HISTORY OF PRESENT ILLNESS: This is an 88-year-old female whom I had seen recently when she presented with a history of Alzheimer disease with quite pronounced cognitive impairment. She was brought in at the beginning of October with an abnormal creatinine, elevated lactate, and abnormal urinalysis. She was brought to the hospital because she had fallen from the wheelchair and hit her head. No evidence of fracture or other injury noted on arrival. The exam showed that she had been afebrile with max temperature 99.2 during the hospital stay. She had a little area of scabbed over ulceration in the right elbow from the fall. The overall exam otherwise remarkable for the cognitive impairment, but no other findings of significance. White cell count remained within normal limits throughout the hospital stay with normal differential. The culture showed two different E coli, one with ESBL profile. Although we were not convinced that the urinary tract findings were unequivocally causing the clinical symptoms that led to admission, we could not rule out the possibility of an invasive process and recommended treatment, which was provided through a PICC line. The patient completed this treatment and repeat evaluation showed resolution of the abnormalities with normal urinalysis. She was brought in mid October with wheezing. At the emergency room, the diagnosis was wheezing. She was discharged with symptomatic medication. At this time, she was brought in with again new development of fever, hypotension. Blood pressure was 104/50, pulse 81, respirations 20, O2 saturation 95%, and temperature was 100.3. Initial findings with rhonchi in the lung examination noted bilaterally. The heart examination was normal. The abdomen is soft and nontender, looks like she was having some diarrhea. The patient had an influenza A test, which was positive. Initial chest x-ray showed minimal increased linear interstitial markings in her right chest and perihilar region, possible atypical pneumonia or pneumonitis. Initial white cell count was 3.6, hemoglobin 7.3, and platelets 152. Microbiology, two sets of negative blood culture thus far and urine culture with MRSA greater than 100,000 CFUs with an abnormal urinalysis. The patient is currently receiving linezolid and oseltamivir. Ms. Pineda appears well as she is quite alert, but she is confused in terms of her location and time. She knows her name. Denies headaches, coughing intermittently with kind of a thick sputum, but she has hard time in bringing up according to the nurse. No chest pain. No abdominal pain or diarrhea. She is urinating in a diaper. PAST MEDICAL HISTORY: Dementia, presumably Alzheimer's and prior urinary tract infections or at least urinary tract colonizations with pyuria, hypertension, osteoarthritis, left hip replacement. FAMILY HISTORY: Noncontributory. 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 ALLERGIES: NONE. CURRENT MEDICATIONS: Beyond the above antimicrobials, she is on Namenda, Seroquel, Florastor, Senokot. She was now given Bactrim. PHYSICAL EXAMINATION: VITAL SIGNS: Temperature max was 100.8, now 97.7; blood pressure 130/60, and pulse is 87. SKIN: A few areas of stage I pressure injury to the medial aspect of the right foot and a few areas of very small shallow ulceration on the lateral aspect of the same side and then on the left foot, there is a bit larger ulceration with scab covering the base. There is gluteal presacral erythema with some macerations. She has a peripheral IV access, but does not have a Mattson catheter. HEENT: No lymphadenopathy. Ocular movements conjugate. Oral cavity with no [place] teeth. NECK: Supple. No jugular vein distention. LUNGS: Symmetric air entry with a few rhonchi and scattered dependent areas of right and left hemithorax. HEART: S1 and S2. Regular rate without murmurs. ABDOMEN: Soft, no distended or tender. No bladder distention. No peritoneal abnormalities. EXTREMITIES: She keeps her lower extremities somewhat in a contracted position. Pulses are diminished in dorsalis pedis. Plantar responses are flexor. No clonus. NEUROLOGIC: She is awake, does not know where she is, did not remember me and she knows her name. LABORATORY DATA: Sodium 137, creatinine 1.15. Liver profile normal. Albumin 2.9. White cell count is at 3.5, hemoglobin 7.8 and 8.5, platelets 113,000, 12% monocytes, 60% neutrophils. Urinalysis with greater than 50 wbc's. Chest x-ray as noted above. Brain CT with no acute findings, just atrophy and white matter ischemic changes. ASSESSMENT: 1. Dementia with influenza A. 2. Upper/lower respiratory tract infection. 3. Abnormal urinalysis with methicillin-resistant Staph aureus, colonization of bladder. The overall clinical laboratory findings are consistent with influenza virus, upper/lower respiratory tract infection. She has neutropenia with trend towards right shift in the differential and I believe that superimposed staphylococcal respiratory tract infection is less likely. I would manage the urinary findings as to colonization without true invasive role at this point in time. It is unlikely that she has an invasive UTI caused by methicillin-resistant Staphylococcus aureus since one would expect a more protracted clinical course with neutrophilia and left shift in the differential. Job ID: [id number]
[2018-12-05] MEDS: Sodium Chloride 0.45% 1,000 ML IV SCH ×2 (02:22→21:43)
[2018-12-05] MEDS ORDERED: Nystatin Powder 15 GM BOT TOP PRN (06:58)
[2018-12-05 07:35] LABS: Anion Gap 12 mmol/L (10-20); BUN (Urea Nitrogen) 16 mg/dL (9.8-20.1); Calc. Creatinine Clearance 32 mL/min (70-130); Calcium 8.3 mg/dL (7.8-10.44); Carbon Dioxide 16 mmol/L (23-31); Chloride 111 mmol/L (98-107); Estimated GFR-MDRD 50; Glucose 90 mg/dL (83-110); Potassium 3.7 mmol/L (3.5-5.1); Sodium 135 mmol/L (136-145)
[2018-12-05] MEDS: Oseltamivir 6 MG/ML ORAL SUSP PO SCH ×2 (09:47→21:33)
[2018-12-05] MEDS: busPIRone HCl 10 MG TAB PO SCH ×2 (09:48→21:35)
[2018-12-05] MEDS: Donepezil HCl 10 MG TAB PO SCH (09:48)
[2018-12-05] MEDS: Sulfameth/Trimethoprim DS 800-160mg TAB PO SCH ×2 (09:49→21:35)
[2018-12-05] MEDS: guaiFENesin ER 600 MG TAB PO SCH ×2 (09:49→21:34)
[2018-12-05] MEDS: hydrALAZINE 25 MG TAB PO SCH ×3 (09:49→21:35)
[2018-12-05] MEDS: Calcium Carbonate + Vit D 1 TAB PO SCH ×2 (09:50→21:34)
[2018-12-05] MEDS: Ferrous Sulfate 325 MG TAB PO SCH (09:50)
[2018-12-05] MEDS: Famotidine 20 MG TAB PO SCH (09:50)
[2018-12-05] MEDS: Saccharomyces boulardii 250 MG CAP PO SCH ×2 (09:50→21:34)
[2018-12-05] MEDS: Folic Acid 1 MG TAB PO SCH (09:50)
[2018-12-05] MEDS: Multivitamin W/ Minerals 1 TAB PO SCH (09:50)
[2018-12-05] MEDS: Amlodipine 5 MG TAB PO SCH ×2 (09:50→21:34)
[2018-12-05] MEDS: Cyanocobalamin (Vitamin B-12) 1,000 MCG TAB PO SCH (09:50)
[2018-12-05] MEDS: Enoxaparin Sodium 30 MG/0.3 ML SYRINGE SC SCH (09:50)
[2018-12-05] MEDS: Escitalopram Oxalate 10 mg Tablet PO SCH (09:50)
[2018-12-05] MEDS: Docusate 100 MG CAP PO SCH (09:51)
--- NOTE | 2018-12-05 16:48 | PRG ---
DATE OF SERVICE: 12/05/2018 SUBJECTIVE: The patient says she does not feel great, but cannot be more articulate than not about what might be making her feel poorly. OBJECTIVE: VITAL SIGNS: Temperature 98.3, pulse 79, blood pressure 133/62, and O2 saturation 94% on room air. GENERAL APPEARANCE: The patient is generally sleepy, lying on her right side. She wakens easily, but she is certainly not back to her baseline energy or mental status compared to my previous interactions with her during her hospitalizations. She is usually very awake, interactive, and maintains a good sense of humor in spite of her dementia. HEART: Regular rate and rhythm. LUNGS: Fairly clear bilaterally with no wheezes or rales. ABDOMEN: Soft, nontender, and nondistended. Positive bowel sounds. No masses. No organomegaly. EXTREMITIES: Warm and dry without edema. LABORATORY DATA: Sodium 135, potassium 3.7, chloride 111, CO2 of 16, BUN 16, creatinine 1.04, and glucose 90. IMPRESSION AND PLAN: 1. Acute hypoxic respiratory failure, appears to be improved. Her sats are better. 2. Acute metabolic encephalopathy, stable. The patient has some underlying baseline dementia. I believe this is due to the infection, and she is certainly not quite back to her baseline at this point. 3. Sepsis secondary to virus, likely due to influenza. 4. Influenza A. Continue the Tamiflu. The patient has low white blood cell count and this is likely partially due to the virus, but also causing her some difficulty in managing the virus. We will continue to monitor. 5. Anemia. The patient has chronic anemia. Her hemoglobin went down to 7.3, it was back up to 8.5. She generally has some pancytopenia. No indication for transfusion. We will repeat a CBC in the morning. 6. Alzheimer dementia, stable. 7. Acute kidney injury, appears to be improving. 8. History of anxiety and depression, stable. 9. History of hypertension, chronic and stable. 10. Initial hypotension, quickly resolved and has not recurred. 11. Disposition. Continue with Tamiflu. Work with Physical Therapy until the patient's mental status gets more back to her baseline, which is a bit more energetic, then she can transfer back to the nursing facility. Dr. Browning felt that the patient's MRSA of the urine was more likely colonization rather than true infection. She was initially on Levaquin changed to a single dose of Zyvox before Dr. Browning is consulted. Dr. Jonas has changed her over to p.o. Bactrim placed for now. Job ID: [id number]
[2018-12-05] MEDS ORDERED: Guaifenesin DM 100-10/5 ML UDCUP PO PRN (18:34)
[2018-12-05] MEDS: Melatonin 3 MG TAB PO SCH (21:33)
[2018-12-05] MEDS: Acetaminophen 325 MG TAB PO PRN (21:35)
[2018-12-06] MEDS: Escitalopram Oxalate 10 mg Tablet PO SCH (07:46)
[2018-12-06] MEDS: Sulfameth/Trimethoprim DS 800-160mg TAB PO SCH ×2 (07:46→21:17)
[2018-12-06] MEDS: Multivitamin W/ Minerals 1 TAB PO SCH (07:46)
[2018-12-06] MEDS: Saccharomyces boulardii 250 MG CAP PO SCH ×2 (07:46→21:17)
[2018-12-06] MEDS: Docusate 100 MG CAP PO SCH (07:46)
[2018-12-06] MEDS: Ferrous Sulfate 325 MG TAB PO SCH (07:46)
[2018-12-06] MEDS: busPIRone HCl 10 MG TAB PO SCH ×2 (07:47→21:17)
[2018-12-06] MEDS: guaiFENesin ER 600 MG TAB PO SCH ×2 (07:47→21:17)
[2018-12-06] MEDS: Folic Acid 1 MG TAB PO SCH (07:47)
[2018-12-06] MEDS: Donepezil HCl 10 MG TAB PO SCH (07:47)
[2018-12-06] MEDS: Calcium Carbonate + Vit D 1 TAB PO SCH ×2 (07:47→21:17)
[2018-12-06] MEDS: Famotidine 20 MG TAB PO SCH (07:47)
[2018-12-06] MEDS: Enoxaparin Sodium 30 MG/0.3 ML SYRINGE SC SCH (07:47)
[2018-12-06] MEDS: Cyanocobalamin (Vitamin B-12) 1,000 MCG TAB PO SCH (07:48)
[2018-12-06] MEDS: Oseltamivir 6 MG/ML ORAL SUSP PO SCH ×2 (07:50→21:14)
[2018-12-06] MEDS: hydrALAZINE 25 MG TAB PO SCH ×3 (07:52→21:17)
[2018-12-06] MEDS: Amlodipine 5 MG TAB PO SCH ×2 (07:52→21:17)
[2018-12-06 08:27] LABS: Anion Gap 10 mmol/L (10-20); BUN (Urea Nitrogen) 13 mg/dL (9.8-20.1); Calc. Creatinine Clearance 28 mL/min (70-130); Calcium 8.3 mg/dL (7.8-10.44); Carbon Dioxide 17 mmol/L (23-31); Chloride 111 mmol/L (98-107); Estimated GFR-MDRD 43; Glucose 79 mg/dL (83-110); Potassium 3.6 mmol/L (3.5-5.1); Sodium 134 mmol/L (136-145)
--- NOTE | 2018-12-06 09:57 | PDOC.PN ---
- Subjective Encounter Start Date: 12/06/18 Encounter Start Time: 12:00 Subjective: Patient still feeling no energy, coughing. Feels cold. - Objective Resuscitation Status - Order Detail: 12/01/18 21:18 Resuscitation Status Routine Resuscitation Status: DNAR: NO Resuscitation Discussed with: pt has outof hospital DNR and wanted to continue MAR Reviewed: Yes Vital Signs & Weight: Vital Signs (12 hours) Temp Pulse Resp BP BP Pulse Ox 12/06/18 08:23 97.6 F 71 18 155/57 H 94 L 12/06/18 07:52 71 155/57 H 12/06/18 00:00 98.5 F Weight Admit Weight 120 lb 3.2 oz Weight 120 lb 3.2 oz I&O: 12/05/18 12/06/18 12/07/18 06:59 06:59 06:59 Intake Total 950 840 Balance 950 840 Result Diagrams: 12/06/18 06:54 12/06/18 06:54 Phys Exam - Physical Examination Constitutional: NAD HEENT: moist MMs Respiratory: no wheezing, no rales, no rhonchi occ cough Cardiovascular: RRR Gastrointestinal: soft, positive bowel sounds Neurological: non-focal Deviation from normal: depressed affect, sleepy Dx/Plan (1) Influenza A Code(s): J10.1 - FLU DUE TO OTH IDENT INFLUENZA VIRUS W OTH RESP MANIFEST Status: Acute Comment: Tamiflu. (2) Acute metabolic encephalopathy Code(s): G93.41 - METABOLIC ENCEPHALOPATHY Status: Acute Comment: Secondary to sepsis. Baseline dementia. (3) Acute respiratory failure with hypoxia Code(s): J96.01 - ACUTE RESPIRATORY FAILURE WITH HYPOXIA Status: Resolved Comment: Back on RA (4) Sepsis Code(s): A41.9 - SEPSIS, UNSPECIFIED ORGANISM Status: Resolved Comment: Secondary to influenza. Dr. Browning believes Staph in urine is colonization, not a UTI at this time. (5) Anemia Code(s): D64.9 - ANEMIA, UNSPECIFIED Status: Acute Comment: Heme positive. May need workup when more stable, but hgb actually going up. (6) Alzheimer's dementia Code(s): G30.9 - ALZHEIMER'S DISEASE, UNSPECIFIED; F02.80 - DEMENTIA IN OTH DISEASES CLASSD ELSWHR W/O BEHAVRL DISTURB Status: Chronic (7) Acute kidney failure Status: Resolved Comment: Creatinine a bit labile, but not bad - Plan cont current plan of care, continue antibiotics, PT/OT Back to NH when mental status improved * . - Discharge Day Encounter end time: 12:20 Pulmonology Consult: Meds - Medications MAR Reviewed: Yes Medications: Current Medications Acetaminophen (Tylenol) 650 mg PO Q4H PRN PRN Reason: Headache/Fever/Mild Pain (1-3) Last Admin: 12/05/18 21:35 Dose: 650 mg Albuterol/Ipratropium (Duoneb) 3 ml NEB Q4IZ-GG PRN PRN Reason: SOB &/or Wheezing Amlodipine Besylate (Norvasc) 5 mg PO BID [facility] Last Admin: 12/06/18 07:52 Dose: 5 mg Bisacodyl (Dulcolax) 10 mg MD DAILYPRN PRN PRN Reason: Constipation Buspirone HCl (Buspar) 15 mg PO BID [facility] Last Admin: 12/06/18 07:47 Dose: 15 mg Calcium Carbonate (Tums) 1,000 mg PO Q4H PRN PRN Reason: Heartburn or Indigestion Calcium/Vitamin D (Caltrate 600 + Vit D) 1 tab PO BID [facility] Last Admin: 12/06/18 07:47 Dose: 1 tab Cyanocobalamin (Vitamin B-12) 1,000 mcg PO DAILY [facility] Last Admin: 12/06/18 07:48 Dose: 1,000 mcg Docusate Sodium (Colace) 100 mg PO DAILY [facility] Last Admin: 12/06/18 07:46 Dose: 100 mg Donepezil HCl (Aricept) 10 mg PO DAILY [facility] Last Admin: 12/06/18 07:47 Dose: 10 mg Enoxaparin Sodium (Lovenox) 30 mg SC 0900 [facility] Last Admin: 12/06/18 07:47 Dose: 30 mg Escitalopram Oxalate (Lexapro) 10 mg PO DAILY [facility] Last Admin: 12/06/18 07:46 Dose: 10 mg Famotidine (Pepcid) 20 mg PO 0900 [facility] Last Admin: 12/06/18 07:47 Dose: 20 mg Ferrous Sulfate (Feosol) 325 mg PO [facility] Last Admin: 12/06/18 07:46 Dose: 325 mg Folic Acid (Folvite) 1 mg PO DAILY [facility] Last Admin: 12/06/18 07:47 Dose: 1 mg Guaifenesin (Mucinex) 600 mg PO Q12HR [facility] Last Admin: 12/06/18 07:47 Dose: 600 mg Guaifenesin/Dextromethorphan (Robitussin Dm) 10 ml PO Q6H PRN PRN Reason: Cough Hydralazine HCl (Apresoline) 25 mg PO TID [facility] Last Admin: 12/06/18 07:52 Dose: 25 mg Hydralazine HCl (Apresoline) 10 mg SLOW IVP Q4H PRN PRN Reason: Hypertension Sodium Chloride (1/2 Normal Saline) 1,000 mls @ 50 mls/hr IV .Q20H [facility] Last Admin: 12/05/18 21:43 Dose: 1,000 mls Iron/Minerals/Multivitamins (Theragran M) 1 tab PO DAILY [facility] Last Admin: 12/06/18 07:46 Dose: 1 tab Loperamide HCl (Imodium) 2 mg PO PRN PRN PRN Reason: Diarrhea/Loose Stools Melatonin (Melatonin) 3 mg PO [facility] Last Admin: 12/05/18 21:33 Dose: 3 mg Memantine (Namenda) 10 mg PO BID [facility] Last Admin: 12/06/18 07:46 Dose: 10 mg Nystatin (Mycostatin Powder) 0 gm TOP PRN PRN PRN Reason: LEAVE AT BEDSIDE Last Admin: 12/05/18 09:45 Dose: 1 applic Oseltamivir Phosphate (Tamiflu) 30 mg PO BID [facility] Stop: 12/06/18 21:01 Last Admin: 12/06/18 07:50 Dose: 30 mg Quetiapine Fumarate (Seroquel) 50 mg PO [facility] Last Admin: 12/05/18 21:35 Dose: 50 mg Saccharomyces Boulardii (Florastor) 250 mg PO BID [facility] Last Admin: 12/06/18 07:46 Dose: 250 mg Senna/Docusate Sodium (Senokot S) 2 tab PO BID PRN PRN Reason: Constipation Sodium Chloride (Flush - Normal Saline) 10 ml IVF Q12HR [facility] Last Admin: 12/06/18 07:53 Dose: 10 ml Sodium Chloride (Flush - Normal Saline) 10 ml IVF PRN PRN PRN Reason: Saline Flush Trimethoprim/Sulfamethoxazole (Bactrim Ds) 1 tab PO BID [facility] Stop: 12/09/18 21:01 Last Admin: 12/06/18 07:46 Dose: 1 tab - Allergies Allergies/Adverse Reactions: Allergies Allergy/AdvReac Type Severity Reaction Status Date / Time No Known Allergies Allergy Verified 12/01/18 22:25
[2018-12-06 10:10] LABS: Band 3 % (5-11); Eosinophils 3 % (0-10); Hemoglobin 8.1 g/dL (12.0-16.0); Lymphocytes 56 % (21-51); MDiff Complete? YES; Mean Corpuscular HGB CONC 33.2 g/dL (32.0-36.0); Mean Corpuscular Volume 93.4 fL (78.0-98.0); Mean Platelet Volume 8.5 fL (7.4-10.4); Monocytes 5 % (0-10); Neutrophil 33 % (42-75); PLT Morphology Comment Appears Decreased; Platelet Count 107 thou/uL (130-400); Polychromasia SLIGHT = 2-3 cells (100X) (0-2/hpf); RBC Distribution Width 12.6 % (11.5-14.5); Red Blood Cell (RBC) Count 2.62 mill/uL (4.20-5.40); White Blood Cell (WBC) Count 2.9 thou/uL (4.8-10.8)
[2018-12-06] MEDS: Sodium Chloride 0.45% 1,000 ML IV SCH (16:02)
[2018-12-06] MEDS: Melatonin 3 MG TAB PO SCH (21:17)
[2018-12-06] MEDS: Acetaminophen 325 MG TAB PO PRN (21:22)
[2018-12-07 07:59] LABS: Anion Gap 12 mmol/L (10-20); BUN (Urea Nitrogen) 9 mg/dL (9.8-20.1); Calc. Creatinine Clearance 30 mL/min (70-130); Calcium 8.6 mg/dL (7.8-10.44); Carbon Dioxide 15 mmol/L (23-31); Chloride 113 mmol/L (98-107); Estimated GFR-MDRD 47; Glucose 81 mg/dL (83-110); Potassium 3.7 mmol/L (3.5-5.1); Sodium 136 mmol/L (136-145)
[2018-12-07] MEDS: Donepezil HCl 10 MG TAB PO SCH (08:17)
[2018-12-07] MEDS: busPIRone HCl 10 MG TAB PO SCH ×2 (08:17→19:27)
[2018-12-07] MEDS: Escitalopram Oxalate 10 mg Tablet PO SCH (08:19)
[2018-12-07] MEDS: Sulfameth/Trimethoprim DS 800-160mg TAB PO SCH ×2 (08:19→19:29)
[2018-12-07] MEDS: Calcium Carbonate + Vit D 1 TAB PO SCH ×2 (08:20→19:29)
[2018-12-07] MEDS: guaiFENesin ER 600 MG TAB PO SCH ×2 (08:21→19:28)
[2018-12-07] MEDS: Folic Acid 1 MG TAB PO SCH (08:22)
[2018-12-07] MEDS: hydrALAZINE 25 MG TAB PO SCH ×3 (08:23→19:29)
[2018-12-07] MEDS: Ferrous Sulfate 325 MG TAB PO SCH (08:23)
[2018-12-07] MEDS: Cyanocobalamin (Vitamin B-12) 1,000 MCG TAB PO SCH (08:24)
[2018-12-07] MEDS: Amlodipine 5 MG TAB PO SCH ×2 (08:25→19:27)
[2018-12-07] MEDS: Famotidine 20 MG TAB PO SCH (08:25)
[2018-12-07] MEDS: Enoxaparin Sodium 30 MG/0.3 ML SYRINGE SC SCH (08:26)
[2018-12-07] MEDS: Saccharomyces boulardii 250 MG CAP PO SCH ×2 (08:26→19:27)
[2018-12-07] MEDS: Multivitamin W/ Minerals 1 TAB PO SCH (08:26)
[2018-12-07] MEDS: Docusate 100 MG CAP PO SCH (08:27)
--- NOTE | 2018-12-07 09:20 | PDOC.PN ---
- Subjective Encounter Start Date: 12/07/18 Encounter Start Time: 11:15 Subjective: Patient more alert today. Didn't eat much breakfast, but had 50% of -: dinner last night when friend was here. - Objective Resuscitation Status - Order Detail: 12/01/18 21:18 Resuscitation Status Routine Resuscitation Status: DNAR: NO Resuscitation Discussed with: pt has outof hospital DNR and wanted to continue MAR Reviewed: Yes Vital Signs & Weight: Vital Signs (12 hours) Temp Pulse Resp BP BP Pulse Ox 12/07/18 08:25 74 134/63 12/07/18 08:23 74 134/63 12/07/18 07:20 98.4 F 74 18 134/63 94 L Weight Admit Weight 120 lb 3.2 oz Weight 120 lb 3.2 oz I&O: 12/06/18 12/07/18 12/08/18 06:59 06:59 06:59 Intake Total 840 2240 Balance 840 2240 Result Diagrams: 12/06/18 06:54 12/07/18 07:09 Phys Exam - Physical Examination Constitutional: NAD HEENT: moist MMs Respiratory: no wheezing, no rales, no rhonchi Cardiovascular: RRR, no significant murmur Gastrointestinal: soft, non-tender Neurological: non-focal, moves all 4 limbs Psychiatric: normal affect Dx/Plan (1) Influenza A Code(s): J10.1 - FLU DUE TO OTH IDENT INFLUENZA VIRUS W OTH RESP MANIFEST Status: Acute Comment: Tamiflu course completed. (2) Acute metabolic encephalopathy Code(s): G93.41 - METABOLIC ENCEPHALOPATHY Status: Acute Comment: Secondary to sepsis. Baseline dementia. (3) Acute respiratory failure with hypoxia Code(s): J96.01 - ACUTE RESPIRATORY FAILURE WITH HYPOXIA Status: Resolved Comment: Back on RA (4) Sepsis Code(s): A41.9 - SEPSIS, UNSPECIFIED ORGANISM Status: Resolved Comment: Secondary to influenza. Dr. Browning believes Staph in urine is colonization, not a UTI at this time. (5) Anemia Code(s): D64.9 - ANEMIA, UNSPECIFIED Status: Acute Comment: Heme positive. May need workup when more stable, but hgb actually going up. (6) Alzheimer's dementia Code(s): G30.9 - ALZHEIMER'S DISEASE, UNSPECIFIED; F02.80 - DEMENTIA IN OTH DISEASES CLASSD ELSWHR W/O BEHAVRL DISTURB Status: Chronic (7) Acute kidney failure Status: Resolved Comment: Creatinine a bit labile, but not bad - Plan cont current plan of care, continue antibiotics, PT/OT Will finish abx in 2 days -: Back to intermediate likely tomorrow. * . - Discharge Day Encounter end time: 11:30
--- NOTE | 2018-12-07 13:57 | PRG ---
DATE OF SERVICE: 12/07/2018 SERVICE: Pulmonary Medicine. INTERVAL HISTORY: The patient is doing fine from respiratory standpoint. She has been weaned down to room air. She denies having any shortness of breath or chest discomfort. She cannot provide any additional elements of the history. PHYSICAL EXAMINATION: VITAL SIGNS: Afebrile, pulse 74, blood pressure 134/63, respirations 18, saturation 94% on room air. GENERAL: The patient is awake and alert, in no apparent distress. LUNGS: Decent air entry. There is no prolonged expiratory phase. Rhonchi are present. No wheezing. HEART: Normal rate and regular. ABDOMEN: Soft, nontender, and nondistended. Bowel sounds are positive. MUSCULOSKELETAL: No cyanosis or clubbing. No pitting in the bilateral lower extremities. NEUROLOGIC: Grossly nonfocal. LABORATORY DATA: Basic metabolic profile is essentially unremarkable other than a bicarb that is dropping gently. There is a non-anion gap metabolic acidosis. Urine catheter is growing MRSA. Blood cultures x2, and C. diff antigen and toxin are unremarkable. ASSESSMENT: 1. Acute hypoxic respiratory failure, resolved. 2. Acute bronchitis secondary to influenza A. 3. Urinary tract infection secondary to methicillin-resistant Staphylococcus aureus. 4. Severe sepsis, resolved. 5. Metabolic encephalopathy, resolved. 6. Dementia, advanced. DISCUSSION AND PLAN: From my perspective, the patient is back to baseline from respiratory standpoint and is stable for transition out of the hospital. At this point, she has no further requirements for inpatient pulmonary critical care opinion, and I will sign off. Please call with additional questions or concerns moving forward. Job ID: [id number]
[2018-12-07] MEDS: Sodium Chloride 0.45% 1,000 ML IV SCH (14:50)
[2018-12-07] MEDS: Melatonin 3 MG TAB PO SCH (19:28)
--- NOTE | 2018-12-08 07:37 | PDOC.PN ---
- Subjective Encounter Start Date: 12/08/18 Encounter Start Time: 10:00 Subjective: Spoke with daughter on the phone. Patient back to baseline mental -: status. Stable for transfer back to assisted living. No complaints today. - Objective Resuscitation Status - Order Detail: 12/01/18 21:18 Resuscitation Status Routine Resuscitation Status: DNAR: NO Resuscitation Discussed with: pt has outof hospital DNR and wanted to continue MAR Reviewed: Yes Vital Signs & Weight: Vital Signs (12 hours) Temp Pulse Resp BP Pulse Ox 12/08/18 07:28 97.7 F 98 18 149/73 H 96 12/07/18 20:00 96 Weight Admit Weight 120 lb 3.2 oz Weight 120 lb 3.2 oz I&O: 12/07/18 12/08/18 12/09/18 06:59 06:59 06:59 Intake Total 2240 1250 Balance 2240 1250 Result Diagrams: 12/06/18 06:54 12/07/18 07:09 Phys Exam - Physical Examination Constitutional: NAD HEENT: moist MMs Respiratory: no wheezing, no rales, no rhonchi Cardiovascular: RRR, no significant murmur Gastrointestinal: soft, non-tender, positive bowel sounds Neurological: non-focal, moves all 4 limbs Psychiatric: normal affect Deviation from normal: Oriented to person Dx/Plan (1) Influenza A Code(s): J10.1 - FLU DUE TO OTH IDENT INFLUENZA VIRUS W OTH RESP MANIFEST Status: Acute Comment: Tamiflu course completed. (2) Acute metabolic encephalopathy Code(s): G93.41 - METABOLIC ENCEPHALOPATHY Status: Acute Comment: Secondary to sepsis. Baseline dementia. (3) Acute respiratory failure with hypoxia Code(s): J96.01 - ACUTE RESPIRATORY FAILURE WITH HYPOXIA Status: Resolved Comment: Back on RA (4) Sepsis Code(s): A41.9 - SEPSIS, UNSPECIFIED ORGANISM Status: Resolved Comment: Secondary to influenza. Dr. Browning believes Staph in urine is colonization, not a UTI at this time. (5) Anemia Code(s): D64.9 - ANEMIA, UNSPECIFIED Status: Acute Comment: Heme positive. May need workup when more stable, but hgb actually going up. (6) Alzheimer's dementia Code(s): G30.9 - ALZHEIMER'S DISEASE, UNSPECIFIED; F02.80 - DEMENTIA IN OTH DISEASES CLASSD ELSWHR W/O BEHAVRL DISTURB Status: Chronic (7) Acute kidney failure Status: Resolved Comment: Creatinine a bit labile, but not bad - Plan cont current plan of care, continue antibiotics, PT/OT Can go back to Assisted Living today -: Spoke with Dr. Browning and he stated that we can d/c the PICC line. * . - Discharge Day Encounter end time: 10:30
[2018-12-08] MEDS: Amlodipine 5 MG TAB PO SCH (08:00)
[2018-12-08] MEDS: busPIRone HCl 10 MG TAB PO SCH (08:01)
[2018-12-08] MEDS: Sulfameth/Trimethoprim DS 800-160mg TAB PO SCH (08:01)
[2018-12-08] MEDS: Saccharomyces boulardii 250 MG CAP PO SCH (08:02)
[2018-12-08] MEDS: Multivitamin W/ Minerals 1 TAB PO SCH (08:03)
[2018-12-08] MEDS: Famotidine 20 MG TAB PO SCH (08:05)
[2018-12-08] MEDS: Cyanocobalamin (Vitamin B-12) 1,000 MCG TAB PO SCH (08:05)
[2018-12-08] MEDS: Donepezil HCl 10 MG TAB PO SCH (08:06)
[2018-12-08] MEDS: Escitalopram Oxalate 10 mg Tablet PO SCH (08:06)
[2018-12-08] MEDS: Folic Acid 1 MG TAB PO SCH (08:07)
[2018-12-08] MEDS: hydrALAZINE 25 MG TAB PO SCH ×2 (08:07→14:30)
[2018-12-08] MEDS: Calcium Carbonate + Vit D 1 TAB PO SCH (08:08)
[2018-12-08] MEDS: Ferrous Sulfate 325 MG TAB PO SCH (08:08)
[2018-12-08] MEDS: Enoxaparin Sodium 30 MG/0.3 ML SYRINGE SC SCH (08:09)
[2018-12-08] MEDS: Docusate 100 MG CAP PO SCH (08:09)
[2018-12-08] MEDS: guaiFENesin ER 600 MG TAB PO SCH (08:10)
[2018-12-08 13:47] VITALS: BP 121/63; TEMP 97.9
--- NOTE | 2018-12-09 02:23 | DIS ---
DATE OF ADMISSION: 12/01/2018 DATE OF DISCHARGE: 12/08/2018 PRIMARY CARE PHYSICIAN: Derik Weeks MD REASON FOR ADMISSION: Influenza A and sepsis. DIAGNOSES AT DISCHARGE: 1. Influenza A resolved. 2. Acute metabolic encephalopathy, resolved. 3. Acute respiratory failure with hypoxia, resolved. 4. Sepsis, resolved. 5. Urinary colonization with methicillin-resistant Staphylococcus aureus. Urinary tract infection ruled out. 6. Anemia. 7. Alzheimer's dementia. 8. Acute kidney failure, resolved. PROCEDURES: CT of the brain showing atrophy and chronic white matter ischemic change, and no acute abnormalities. CONSULTATIONS: 1. Pulmonology, Dr. Reyes. 2. Infectious Disease, Dr. Browning. SUMMARY OF HOSPITAL COURSE: This is an 88-year-old white female, lives at the assisted living. Does not ambulate and has to have assistance moving back and forth to wheelchair or to chair, mostly lays in her bed or sits in a chair and sleeps throughout the day. She does have dementia. Her daughter is living in [place] and taking care of her ailing , who has cancer, so was not able to be with her at this time. The patient was noted to be more altered at dinnertime than her normal dementia, had some hypotension and some diarrhea, so she was brought to the emergency room. When paramedics got there, her blood pressure was 70/50 and improved with IV fluids. In the emergency room, she was found to have influenza A. She also had urinalysis consistent with UTI. The patient was admitted to the hospital. She was noted to be DNR and this was confirmed. Dr. Reyes was consulted with Pulmonology. The patient was treated with oseltamivir and antibiotics. Her urine grew out MRSA. The patient had previously seen Dr. Browning for an extended-spectrum bacterial resistant E coli in her urine. Uncertain, if it was an infection at that time and she had had a PICC line put in and had long-term IV antibiotics that did not grow back at this time. She still does have the PICC line. Dr. Browning evaluated her and determined that the flu was the source of her problems and discontinued her other antibiotics. The patient improved during the course of hospitalization and was back to her baseline on the day of discharge. Dr. Browning did okayed to discontinuing of the PICC line before transfer back to her assisted living. DISCHARGE MANAGEMENT: Discharged back to Assisted Living. ACTIVITY: As tolerated. Transferring with assistance only. DIET: Regular diet with supplemental shakes. FOLLOWUP: Follow up with Dr. Browning and Dr. Reyes as recommended, and with Dr. Weeks in 7 days. MEDICATIONS: Resume all home medications. 1. Amlodipine 5 mg twice a day. 2. Buspirone 15 mg twice a day. 3. Calcium carbonate/vitamin D3, one tablet twice a day. 4. Docusate sodium 100 mg capsule daily. 5. Donepezil 10 mg daily. 6. Escitalopram 10 mg daily. 7. Melatonin 3 mg at night. 8. Memantine 10 mg twice a day. 9. Acetaminophen as needed. 10. Albuterol sulfate as needed. 11. Alprazolam 0.5 mg as needed for anxiety. 12. Glucosamine/chondroitin one cap daily. 13. Guaifenesin 5 mL every 4 hours as needed. 14. Hydralazine as needed. 15. Loratadine 10 mg daily. 16. Seroquel 50 mg twice a day. The arrangement of the details for this discharge took 32 minutes to complete. Job ID: [id number]
--- NOTE | 2018-12-10 14:14 | EKG ---
Test Reason : Blood Pressure : / mmHG Vent. Rate : 080 BPM Atrial Rate : 080 BPM P-R Int : 130 ms QRS Dur : 078 ms QT Int : 398 ms P-R-T Axes : 061 041 060 degrees QTc Int : 459 ms Sinus rhythm with Premature atrial complexes ST abnormality, possible digitalis effect Abnormal ECG Confirmed by RAFAL WOOD D.O. ([id number]), deputy editor in chief [facility] BLOOD ([id number]) on 12/10/2018 2:13:39 PM Referred By: Confirmed By:RAFAL WOOD D.O.
== END 2018-12-08 15:46 | disposition home or self-care (01) | DRG 871 ==
LOC: ERS 18:32 → IMCU/EMU 20:30 → T4-A 12-02 21:27
PROVIDERS: ADMIT Emergency Medicine; ATTEND Emergency Medicine
DX: A41.9 Sepsis, unspecified organism (principal); J96.01 Acute respiratory failure with hypoxia; G93.41 Metabolic encephalopathy; N17.9 Acute kidney failure, unspecified; R65.20 Severe sepsis without septic shock; J10.1 Influenza due to other identified influenza virus with other respiratory manifestations; E78.2 Mixed hyperlipidemia; J20.9 Acute bronchitis, unspecified; Z66 Do not resuscitate; I73.9 Peripheral vascular disease, unspecified; I25.10 Atherosclerotic heart disease of native coronary artery without angina pectoris; J45.909 Unspecified asthma, uncomplicated; Z85.3 Personal history of malignant neoplasm of breast; I10 Essential (primary) hypertension; E86.0 Dehydration; L89.890 Pressure ulcer of other site, unstageable; E78.5 Hyperlipidemia, unspecified; M19.90 Unspecified osteoarthritis, unspecified site; F41.9 Anxiety disorder, unspecified; F32.9 Major depressive disorder, single episode, unspecified; Z90.12 Acquired absence of left breast and nipple; Z79.899 Other long term (current) drug therapy; I95.9 Hypotension, unspecified; G30.9 Alzheimer's disease, unspecified; F02.80 Dementia in other diseases classified elsewhere, unspecified severity, without behavioral disturbance, psychotic disturbance, mood disturbance, and anxiety; Z22.322 Carrier or suspected carrier of Methicillin resistant Staphylococcus aureus
CPT/HCPCS: 36415; 51701; 70450; 71045; 80048; 80053; 81003; 81015; 82274; 82550; 83605; 83735; 84100; 85014; 85018; 85025; 86850; 86900; 86901; 87040; 87045; 87046; 87077; 87086; 87186; 87324; 87449; 87804; 87899; 90471; 90670; 93005; 94640; 94760; 96361; 96365; A4353; B4087; G0009; J0696; J1650; J1956; J2020; J2543; J3370; J7050; J7620

== ENCOUNTER 2019-03-01 17:47 | Emergency (ER) | payer MEDICARE ==
[2019-03-01] MEDS ORDERED: Lorazepam 2 MG/ML VIAL ONE (17:56)
--- NOTE | 2019-03-01 18:17 | CT ---
FExam: CT brain Provided clinical history: Head injury COMPARISON: 12/01/2018 FINDINGS: The ventricular system is normal in size and morphology. No evidence for intracranial hemorrhage or m ass effect. 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 Right frontal scalp hematoma. The extracranial soft tissues and osseous structures demonstrate an otherwise unremarkable CT appeara nce. IMPRESSION: No evidence for intracranial hemorrhage or mass effect.
--- NOTE | 2019-03-01 18:22 | CT ---
FEXAM: CT cervical spine PROVIDED CLINICAL HISTORY: Pain COMPARISON: 10/29/2018 FINDINGS: No evidence for fracture or traumatic subluxation. No prevertebral soft tissue swelling apparent. Vis ualized lung apices appear clear. Carotid calcifications are seen. Degenerative changes are again not ed. Stable left thyroid lobe nodule. IMPRESSION: No evidence for fracture or traumatic subluxation.
[2019-03-01 18:34] LABS: #Eosinphils 0.1 thou/uL (0.0-0.7); #Monocytes 0.7 thou/uL (0.11-0.59); #Neutrophils 3.9 thou/uL (1.40-6.50); %Basophils 0.3 % (0.0-1.0); %Eosinophils 0.8 % (0.0-10.0); %Lymphocytes 30.1 % (21.0-51.0); %Neutrophils 57.8 % (42.0-75.0); Hemoglobin 9.3 g/dL (12.0-16.0); Mean Corpuscular HGB CONC 33.7 g/dL (32.0-36.0); Mean Corpuscular Hemoglobin 30.3 pg (27.0-31.0); Mean Corpuscular Volume 90.2 fL (78.0-98.0); Mean Platelet Volume 7.5 fL (7.4-10.4); Platelet Count 158 thou/uL (130-400); RBC Distribution Width 13.9 % (11.5-14.5); Red Blood Cell (RBC) Count 3.05 mill/uL (4.20-5.40); White Blood Cell (WBC) Count 6.7 thou/uL (4.8-10.8)
[2019-03-01 18:53] LABS: Anion Gap 11 mmol/L (10-20); BUN (Urea Nitrogen) 30 mg/dL (9.8-20.1); Calc. Creatinine Clearance 0 mL/min (70-130); Calcium 9.5 mg/dL (7.8-10.44); Carbon Dioxide 21 mmol/L (23-31); Chloride 109 mmol/L (98-107); Estimated GFR-MDRD 44; Glucose 118 mg/dL (83-110); Potassium 3.7 mmol/L (3.5-5.1); Sodium 137 mmol/L (136-145)
== END 2019-03-01 21:15 ==
LOC: ERS 17:47
DX: S16.1XXA Strain of muscle, fascia and tendon at neck level, initial encounter (principal); S00.93XA Contusion of unspecified part of head, initial encounter; E78.5 Hyperlipidemia, unspecified; F41.9 Anxiety disorder, unspecified; F03.90 Unspecified dementia, unspecified severity, without behavioral disturbance, psychotic disturbance, mood disturbance, and anxiety; I73.9 Peripheral vascular disease, unspecified; I25.10 Atherosclerotic heart disease of native coronary artery without angina pectoris; M19.90 Unspecified osteoarthritis, unspecified site; Z85.3 Personal history of malignant neoplasm of breast; Z79.899 Other long term (current) drug therapy; W19.XXXA Unspecified fall, initial encounter
CPT/HCPCS: 36415; 70450; 72125; 80048; 85025; 96374; J2060